=== PATIENT | female | born 1930 | race Caucasian/White ===

== ENCOUNTER 2016-11-03 12:39 | Emergency (ER) | payer OTHER ==
[2016-11-03 13:18] VITALS: TEMP 97.7; O2SAT 97
[2016-11-03] MEDS ORDERED: ONDANSETRON 4 MG/2 ML VIAL IVP ONE (14:29)
--- NOTE | 2016-11-03 14:32 | EDPHY ---
H & P Stated Complaint: LLQ pain since this morning;hx L ing/femoral hernia HPI/ROS: CHIEF COMPLAINT: Left inguinal pain HISTORY OF PRESENT ILLNESS: Patient complains of 1 day history of left inguinal and left lower quadrant abdominal pain. Gradual onset. Constant duration. Rated at a 4/10 to 7/10. Worse with Valsalva, palpation and movement. Her daughter is with her at bedside. She reports a history of inguinal and femoral hernias in the past in this area. She has been admitted in the past for these due to partial small-bowel obstructions. She was deemed to be a nonsurgical candidate and treated conservatively. She did well with these. She has had no constipation or diarrhea. She has had no fever or chills. No vomiting. Some nausea. No trauma or injury. She does take Xarelto. No other associated complaints or modifying factors. She is chronically dependent on oxygen 2-3 L. REVIEW OF SYSTEMS: Ten systems reviewed and are negative unless otherwise noted in the HPI PAST MEDICAL HISTORY: Reviewed as documented SOCIAL HISTORY: Nonsmoker. Lives in assisted living at the [facility] FAMILY HISTORY: Noncontributory EXAMINATION General Appearance: Alert, no distress Head: normocephalic, atraumatic Eyes: Pupils equal and round, no conjunctival pallor or injection ENT, Mouth: Mucous membranes moist. Uvula midline. No erythema. Airway widely patent. Neck: Normal inspection, supple, non-tender Respiratory: Lungs are clear to auscultation. No wheezing, rhonchi or crackles Cardiovascular: Regular rate and rhythm. No murmur. Pulses intact distally. Gastrointestinal: Abdomen is soft. Left inguinal tenderness. No appreciable hernia palpated. No rigidity or distention. Bowel sounds are present in all 4 quadrants but diminished. Neurological: A&O, GCS 15. nonfocal, normal gait Skin: Warm and dry, no rash Extremities: Nontender, no pedal edema Psychiatric: Mood and affect normal DIFFERENTIAL DIAGNOSES: Including but not limited to hernia, incarcerated hernia, strangulated hernia, colitis, diverticulitis, ureteral stone, UTI MDM: 2:29 p.m. Left lower quadrant/inguinal pain in a patient with history of inguinal and femoral hernias. Patient has an IV contrast allergy but I have ordered CT scan without. Pain medication and laboratory studies have been ordered. Her daughter at bedside is a nurse practitioner. She reports that the patient is very tenuous with her fluid status and is requesting that we not provide any IV fluid resuscitation at this time, as she has easily been precipitated into congestive heart failure. 3:15 p.m. Notified by radiologist Dr. Herman. We discussed the patient's case and the CT scan findings as documented. No bowel incarceration or strangulation. 3:37 p.m. I have re-examined the patient. She is feeling minimally better at this time. She still has left inguinal pain but it has improved somewhat. No vomiting. We discussed discharge home versus admission. She and her daughter at bedside are more comfortable with patient being observed. She is not yet able to ambulate given her pain. I will proceed with admission to the hospital. 3:40 p.m. I discussed the case with hospitalist Dr. Isaacs. He will admit the patient to observation status. She is admitted in stable condition. Vital signs are all within normal limits. SUPERVISION: Patient was evaluated in conjunction with the supervising physician. Please see their note for details. Source: Patient, Family Exam Limitations: No limitations - Personal History Current Tetanus Diphtheria and Acellular Pertussis (TDAP): Yes Tetanus Vaccine Date: 12/12/2011 - Medical/Surgical History Hx Asthma: No Hx Chronic Respiratory Disease: Yes Hx Diabetes: Yes Hx Cardiac Disease: Yes Hx Renal Disease: No Hx Cirrhosis: No Hx Alcoholism: No Hx HIV/AIDS: No Hx Splenectomy or Spleen Trauma: No Other PMH: MEDICAL: DIABETES, CHF, ATRIAL FIBRILLATION, ablation, HTN, raynauds , osteoporosis, osteoarthritis, scoliosis. SURGERY: PACER, TIA, bladder repair - Social History Smoking Status: Never smoked Constitutional: Initial Vital Signs Temperature (C) 97.7 F 11/03/16 13:05 Heart Rate 61 11/03/16 13:05 Respiratory Rate 18 11/03/16 13:05 Blood Pressure 170/72 H 11/03/16 13:05 O2 Sat (%) 97 11/03/16 13:05 O2 Delivery Mode Nasal Cannula O2 (L/minute) 3 Allergies/Adverse Reactions: aspirin Allergy (Verified 11/03/16 13:15) Iodinated Contrast Media - Oral and Allergy (Verified 11/03/16 13:15) Home Medications: Medication Instructions Recorded Acetaminophen [Tylenol ES 500 mg 500 mg PO TIDMEAL 04/04/12 (*)] Simvastatin [Zocor 10 mg] 10 mg PO DAILY18 04/04/12 Acetaminophen [Tylenol ES 500 mg 1,000 mg PO HS 09/04/14 (*)] Carboxymethylcellulose 1% [Refresh 1 drop EACHEYE HS 09/04/14 Celluvisc (*)] Carvedilol [Coreg (*)] 6.25 mg PO BIDMEAL 09/04/14 Torsemide 20 mg PO DAILY 11/04/14 Nitroglycerin [Nitrostat 0.4 mg 0.4 mg SL Q5M PRN 01/30/16 (*)] metFORMIN HCL [Metformin HCl ER] 500 mg PO DAILY@18 01/30/16 Rivaroxaban [Xarelto] 20 mg PO DAILY18 01/31/16 Medical Decision Making - Diagnostics Imaging Results: Imaging Impressions Abdomen/Pelvis CT 11/03/16 14:28 Impression: 1. A few mildly dilated and fluid-filled small bowel loops are seen in the pelvis. 2. Pronounced spinal degenerative changes as well as scoliotic curvature. 3. Cardiac enlargement and coronary arterial calcifications. 4. See above report for additional findings. Results called and discussed with Fab Larson on 11/03/2016 at 15:14 - Data Points Laboratory Results: Laboratory Results 11/03/16 14:30 11/03/16 14:30 11/03/16 11/03/16 11/03/16 14:30 14:30 14:30 WBC RBC Hgb Hct MCV MCH MCHC RDW Plt Count MPV Neut % (Auto) Lymph % (Auto) [place] % (Auto) Eos % (Auto) Baso % (Auto) Nucleat RBC Rel Count Absolute Neuts (auto) Absolute Lymphs (auto) Absolute Monos (auto) Absolute Eos (auto) Absolute Basos (auto) Absolute Nucleated RBC Immature Gran % Immature Gran # PT 15.0 SEC SEC (12.0-15.0) INR 1.18 H (0.83-1.16) APTT 34.9 SEC SEC (23.0-38.0) VBG Lactic Acid 1.1 mmol/L mmol/L (0.7-2.1) Sodium 135 mEq/L mEq/L (134-144) Potassium 4.2 mEq/L mEq/L (3.5-5.2) Chloride 93 mEq/L L mEq/L (97-110) Carbon Dioxide 29 mEq/l mEq/l (22-31) Anion Gap 13 mEq/L mEq/L (8-16) BUN 24 mg/dL H mg/dL (7-23) Creatinine 0.7 mg/dL mg/dL (0.6-1.0) Estimated GFR > 60 Glucose 119 mg/dL H mg/dL (70-100) Calcium 10.0 mg/dL mg/dL (8.5-10.4) Total Bilirubin 0.8 mg/dL mg/dL (0.1-1.4) Conjugated Bilirubin 0.3 mg/dL mg/dL (0.0-0.5) Unconjugated Bilirubin 0.5 mg/dL mg/dL (0.0-1.1) AST 32 IU/L IU/L (14-46) ALT 35 IU/L IU/L (9-52) Alkaline Phosphatase 91 IU/L IU/L (38-126) Total Protein 7.8 g/dL g/dL (6.3-8.2) Albumin 4.5 g/dL g/dL (3.5-5.0) Lipase 230.0 IU/L IU/L (23-300) Urine Color Urine Appearance Urine pH Ur Specific [place] Urine Protein Urine Ketones Urine Blood Urine Nitrate Urine Bilirubin Urine Urobilinogen Ur Leukocyte Esterase Urine RBC Urine WBC Ur Epithelial Cells Hyaline Casts Urine Mucus Urine Glucose 11/03/16 11/03/16 14:30 14:15 WBC 6.75 10^3/uL 10^3/uL (3.80-9.50) RBC 3.76 10^6/uL L 10^6/uL (4.18-5.33) Hgb 12.5 g/dL L g/dL (12.6-16.3) Hct 37.9 % L % (38.0-47.0) MCV 100.8 fL H fL (81.5-99.8) MCH 33.2 pg pg (27.9-34.1) MCHC 33.0 g/dL g/dL (32.4-36.7) RDW 11.5 % % (11.5-15.2) Plt Count 172 10^3/uL 10^3/uL (150-400) MPV 9.3 fL fL (8.7-11.7) Neut % (Auto) 62.4 % % (39.3-74.2) Lymph % (Auto) 28.1 % % (15.0-45.0) [place] % (Auto) 6.2 % % (4.5-13.0) Eos % (Auto) 2.1 % % (0.6-7.6) Baso % (Auto) 0.9 % % (0.3-1.7) Nucleat RBC Rel Count 0.0 % % (0.0-0.2) Absolute Neuts (auto) 4.21 10^3/uL 10^3/uL (1.70-6.50) Absolute Lymphs (auto) 1.90 10^3/uL 10^3/uL (1.00-3.00) Absolute Monos (auto) 0.42 10^3/uL 10^3/uL (0.30-0.80) Absolute Eos (auto) 0.14 10^3/uL 10^3/uL (0.03-0.40) Absolute Basos (auto) 0.06 10^3/uL 10^3/uL (0.02-0.10) Absolute Nucleated RBC 0.00 10^3/uL 10^3/uL (0-0.01) Immature Gran % 0.3 % % (0.0-1.1) Immature Gran # 0.02 10^3/uL 10^3/uL (0.00-0.10) PT INR APTT VBG Lactic Acid Sodium Potassium Chloride Carbon Dioxide Anion Gap BUN Creatinine Estimated GFR Glucose Calcium Total Bilirubin Conjugated Bilirubin Unconjugated Bilirubin AST ALT Alkaline Phosphatase Total Protein Albumin Lipase Urine Color PALE YELLOW Urine Appearance CLEAR Urine pH 7.0 (5.0-7.5) Ur Specific [place] 1.011 (1.002-1.030) Urine Protein NEGATIVE (NEGATIVE) Urine Ketones NEGATIVE (NEGATIVE) Urine Blood NEGATIVE (NEGATIVE) Urine Nitrate NEGATIVE (NEGATIVE) Urine Bilirubin NEGATIVE (NEGATIVE) Urine Urobilinogen NEGATIVE EU EU (0.2-1.0) Ur Leukocyte Esterase NEGATIVE (NEGATIVE) Urine RBC 1-3 /hpf /hpf (0-3) Urine WBC NONE SEEN /hpf /hpf (0-3) Ur Epithelial Cells NONE SEEN /lpf /lpf (NONE-1+) Hyaline Casts 1-5 /lpf /lpf (0-1) Urine Mucus TRACE /lpf /lpf (NONE-1+) Urine Glucose NEGATIVE (NEGATIVE) Departure - Departure Disposition: [facility] Inpatient Acute Clinical Impression: Abdominal pain Qualifiers: Abdominal location: left lower quadrant Qualified Code(s): R10.32 - Left lower quadrant pain Inguinal hernia Qualifiers: Obstruction and gangrene presence: without obstruction or gangrene Laterality: bilateral Recurrence: recurrent Qualified Code(s): K40.21 - Bilateral inguinal hernia, without obstruction or gangrene, recurrent Condition: Good Referrals: Lorena Taylor MD [Primary Care Provider] - As per Instructions
[2016-11-03 14:46] LABS: % IMMATURE GRANULYOCYTES 0.3 % (0.0-1.1); ABSOLUTE IMMATURE GRANULOCYTES 0.02 10^3/uL (0.00-0.10); ADD DIFF? NO; ADD MORPH? NO; ADD SCAN? NO; ATYPICAL LYMPHOCYTE FLAG 0 (0-99); FRAGMENT RBC FLAG 0 (0-99); HEMATOCRIT 37.9 % (38.0-47.0); HEMOGLOBIN 12.5 g/dL (12.6-16.3); LEFT SHIFT FLG 10 (0-99); LIPEMIA HEMOLYSIS FLAG 80 (0-99); MEAN CELL HEMOGLOBIN 33.2 pg (27.9-34.1); MEAN CELL VOLUME 100.8 fL (81.5-99.8); MEAN PLATELET VOLUME 9.3 fL (8.7-11.7); PLATELET CLUMPS FLAG 0 (0-99); PLATELET COUNT 172 10^3/uL (150-400); RED BLOOD CELL COUNT 3.76 10^6/uL (4.18-5.33); RED CELL DISTRIBUTION WIDTH 11.5 % (11.5-15.2)
[2016-11-03 14:51] LABS: COLOR PALE YELLOW; LEUKOCYTE ESTERASE,URINE NEGATIVE (NEGATIVE); NITRITE,URINE NEGATIVE (NEGATIVE)
[2016-11-03 14:54] LABS: INR 1.18 (0.83-1.16)
[2016-11-03 14:55] LABS: APTT 34.9 SEC (23.0-38.0)
[2016-11-03 15:01] LABS: ALANINE AMINOTRANSFERASE 35 IU/L (9-52); ALBUMIN 4.5 g/dL (3.5-5.0); ALKALINE PHOSPHATASE 91 IU/L (38-126); ANION GAP 13 mEq/L (8-16); ASPARTATE AMINOTRANSFERASE 32 IU/L (14-46); BILIRUBIN,TOTAL 0.8 mg/dL (0.1-1.4); BILIRUBIN-CONJUGATED 0.3 mg/dL (0.0-0.5); BILIRUBIN-UNCONJUGATED 0.5 mg/dL (0.0-1.1); CARBON DIOXIDE 29 mEq/l (22-31); CHLORIDE 93 mEq/L (97-110); CREATININE 0.7 mg/dL (0.6-1.0); GLOMERULAR FILTRATION RATE > 60; GLUCOSE 119 mg/dL (70-100); POTASSIUM 4.2 mEq/L (3.5-5.2); SODIUM 135 mEq/L (134-144); TOTAL PROTEIN 7.8 g/dL (6.3-8.2)
[2016-11-03 15:01] LABS: MUCUS TRACE /lpf (NONE-1+)
[2016-11-03 15:14] LABS: WBC,URINE NONE SEEN /hpf (0-3)
[2016-11-03] MEDS ORDERED: ACETAMINOPHEN 325 MG TAB PO PRN (16:08)
[2016-11-03] MEDS ORDERED: ONDANSETRON DISINTEGRATING 4 MG TAB PO PRN (16:08)
[2016-11-03] MEDS ORDERED: METOCLOPRAMIDE 10 MG/2 ML VIAL IVP PRN (16:08)
[2016-11-03] MEDS ORDERED: ONDANSETRON 4 MG/2 ML VIAL IVP PRN (16:08)
[2016-11-03] MEDS ORDERED: NS 1,000 ML IV SCH (16:15)
--- NOTE | 2016-11-03 17:06 | PDGENHP ---
History and Physical - Chief Complaint Acute abdominal pain - History of Present Illness PCP: Dr. Taylor Consulting provider: Fab Larson, emergency department provider Reason for consultation: Acute partial small-bowel obstruction HPI: 86-year-old female presenting with acute abdominal pain characterized as 7 /10 sharp pain located in the left inguinal area with onset of symptoms 730 on the morning of presentation and duration persistent thereafter. She reports that the character is very similar to her previous small bowel obstructions. She reports that the pain is exacerbated with Valsalva, palpation, movement. She attempted to alleviated with Gas-X x2, no success. Her last oral intake was breakfast on the morning of presentation before the onset of symptoms, and her only oral intake thereafter has been 2 sips of water. Her last bowel movement was normal on the morning of presentation. Prior to initiation of symptoms, the patient had otherwise been feeling well. She reports that she did attempt to reduce the potential hernia by massaging her abdomen and lying supine, with no effect. History Information - Allergies/Home Medication List Allergies/Adverse Reactions: aspirin Allergy (Verified 11/03/16 13:15) Iodinated Contrast Media - Oral and Allergy (Verified 11/03/16 13:15) Home Medications: Simvastatin [Zocor 10 mg] 10 mg PO DAILY18 04/04/12 [Last Taken 11/02/16] Carvedilol [Coreg (*)] 6.25 mg PO BIDMEAL 09/04/14 [Last Taken 11/03/16] Torsemide 20 mg PO DAILY@11/04/14 [Last Taken 11/03/16] Nitroglycerin [Nitrostat 0.4 mg (*)] 0.4 mg SL AD PRN 01/30/16 [Last Taken Unknown] metFORMIN HCL [Metformin HCl ER] 500 mg PO DAILY@18 01/30/16 [Last Taken ] Rivaroxaban [Xarelto] 20 mg PO DAILY18 01/31/16 [Last Taken 11/02/16] Acetaminophen [Tylenol ES 500 mg (*)] 1,000 mg PO TID@,,11/03/16 [Last Taken 11/03/16 2000mg] Acetaminophen [Tylenol ES 500 mg (*)] 500 mg PO DAILY@18 11/03/16 [Last Taken ] Herbals/Supplements -Info Only 1 ea PO DAILY 11/03/16 [Last Taken Unknown] I have personally reviewed and updated: family history, medical history, social history, surgical history - Past Medical History Additional medical history: partial small bowel obstruction secondary to femoral hernia. Recurrent inguinal and femoral hernias. Chronic hypoxic respiratory failure. Chronic systolic congestive heart failure secondary to takotsubo cardiomyopathy with last known ejection fraction 25%. Atrial fibrillation and sick sinus syndrome. Hypertension. Hyperlipidemia. Diabetes mellitus type 2. Coronary artery disease status post OH in March 2012. Postoperative provoked pulmonary embolism - Surgical History Additional surgical history: permanent pacemaker placement. ORIF femur. Hysterectomy. Cataract surgery. Foot surgery - Family History Additional family history: her parents are , she had no other recent sick family contacts - Social History Smoking Status: Never smoked Alcohol Use: Occasionally Drug Use: None Additional social history: utilizes a walker, lives at [facility] Review of Systems ROS: 10pt was reviewed & negative except for what was stated in HPI & below Gastrointestinal: Reports: abdominal pain, abdominal distention Physical Exam Temp Pulse Resp BP Pulse Ox 36.5 C 61 18 170/72 H 97 11/03/16 13:05 11/03/16 13:05 11/03/16 13:05 11/03/16 13:05 11/03/16 13:05 Constitutional: no apparent distress, appears nourished, not in pain, other ( elderly appearing) Eyes: PERRL, anicteric sclera, EOMI, other ( per surgical cataract pupils) Ears, Nose, Mouth, Throat: moist mucous membranes, hearing normal, ears appear normal, no oral mucosal ulcers Cardiovascular: regular rate and rhythym, no murmur, rub, or gallop, No edema Respiratory: no respiratory distress, no rales or rhonchi, clear to auscultation Gastrointestinal: normoactive bowel sounds, soft, non-tender abdomen, no palpable masses, distension ( mild), other ( no inguinal hernia noted), No guarding Genitourinary: no bladder fullness, no bladder tenderness Skin: warm, normal color, no rashes or abrasions, no fluctuance, no induration, No mottled Neurologic: AAOx3, No facial droop Psychiatric: interacting appropriately, not anxious, not encephalopathic, thought process linear Lab Data & Imaging Review 11/03/16 14:30 11/03/16 14:30 WBC 6.75 10^3/uL (3.80-9.50) 11/03/16 14:30 RBC 3.76 10^6/uL (4.18-5.33) L 11/03/16 14:30 Hgb 12.5 g/dL (12.6-16.3) L 11/03/16 14:30 Hct 37.9 % (38.0-47.0) L 11/03/16 14:30 MCV 100.8 fL (81.5-99.8) H 11/03/16 14:30 MCH 33.2 pg (27.9-34.1) 11/03/16 14:30 MCHC 33.0 g/dL (32.4-36.7) 11/03/16 14:30 RDW 11.5 % (11.5-15.2) 11/03/16 14:30 Plt Count 172 10^3/uL (150-400) 11/03/16 14:30 MPV 9.3 fL (8.7-11.7) 11/03/16 14:30 Neut % (Auto) 62.4 % (39.3-74.2) 11/03/16 14:30 Lymph % (Auto) 28.1 % (15.0-45.0) 11/03/16 14:30 [place] % (Auto) 6.2 % (4.5-13.0) 11/03/16 14:30 Eos % (Auto) 2.1 % (0.6-7.6) 11/03/16 14:30 Baso % (Auto) 0.9 % (0.3-1.7) 11/03/16 14:30 Nucleat RBC Rel Count 0.0 % (0.0-0.2) 11/03/16 14:30 Absolute Neuts (auto) 4.21 10^3/uL (1.70-6.50) 11/03/16 14:30 Absolute Lymphs (auto) 1.90 10^3/uL (1.00-3.00) 11/03/16 14:30 Absolute Monos (auto) 0.42 10^3/uL (0.30-0.80) 11/03/16 14:30 Absolute Eos (auto) 0.14 10^3/uL (0.03-0.40) 11/03/16 14:30 Absolute Basos (auto) 0.06 10^3/uL (0.02-0.10) 11/03/16 14:30 Absolute Nucleated RBC 0.00 10^3/uL (0-0.01) 11/03/16 14:30 Immature Gran % 0.3 % (0.0-1.1) 11/03/16 14:30 Immature Gran # 0.02 10^3/uL (0.00-0.10) 11/03/16 14:30 PT 15.0 SEC (12.0-15.0) 11/03/16 14:30 INR 1.18 (0.83-1.16) H 11/03/16 14:30 APTT 34.9 SEC (23.0-38.0) 11/03/16 14:30 VBG Lactic Acid 1.1 mmol/L (0.7-2.1) 11/03/16 14:30 Sodium 135 mEq/L (134-144) 11/03/16 14:30 Potassium 4.2 mEq/L (3.5-5.2) 11/03/16 14:30 Chloride 93 mEq/L (97-110) L 11/03/16 14:30 Carbon Dioxide 29 mEq/l (22-31) 11/03/16 14:30 Anion Gap 13 mEq/L (8-16) 11/03/16 14:30 BUN 24 mg/dL (7-23) H 11/03/16 14:30 Creatinine 0.7 mg/dL (0.6-1.0) 11/03/16 14:30 Estimated GFR > 60 11/03/16 14:30 Glucose 119 mg/dL (70-100) H 11/03/16 14:30 Calcium 10.0 mg/dL (8.5-10.4) 11/03/16 14:30 Total Bilirubin 0.8 mg/dL (0.1-1.4) 11/03/16 14:30 Conjugated Bilirubin 0.3 mg/dL (0.0-0.5) 11/03/16 14:30 Unconjugated Bilirubin 0.5 mg/dL (0.0-1.1) 11/03/16 14:30 AST 32 IU/L (14-46) 11/03/16 14:30 ALT 35 IU/L (9-52) 11/03/16 14:30 Alkaline Phosphatase 91 IU/L (38-126) 11/03/16 14:30 Total Protein 7.8 g/dL (6.3-8.2) 11/03/16 14:30 Albumin 4.5 g/dL (3.5-5.0) 11/03/16 14:30 Lipase 230.0 IU/L (23-300) 11/03/16 14:30 Urine Color PALE YELLOW 11/03/16 14:15 Urine Appearance CLEAR 11/03/16 14:15 Urine pH 7.0 (5.0-7.5) 11/03/16 14:15 Ur Specific [place] 1.011 (1.002-1.030) 11/03/16 14:15 Urine Protein NEGATIVE (NEGATIVE) 11/03/16 14:15 Urine Ketones NEGATIVE (NEGATIVE) 11/03/16 14:15 Urine Blood NEGATIVE (NEGATIVE) 11/03/16 14:15 Urine Nitrate NEGATIVE (NEGATIVE) 11/03/16 14:15 Urine Bilirubin NEGATIVE (NEGATIVE) 11/03/16 14:15 Urine Urobilinogen NEGATIVE EU (0.2-1.0) 11/03/16 14:15 Ur Leukocyte Esterase NEGATIVE (NEGATIVE) 11/03/16 14:15 Urine RBC 1-3 /hpf (0-3) 11/03/16 14:15 Urine WBC NONE SEEN /hpf (0-3) 11/03/16 14:15 Ur Epithelial Cells NONE SEEN /lpf (NONE-1+) 11/03/16 14:15 Hyaline Casts 1-5 /lpf (0-1) 11/03/16 14:15 Urine Mucus TRACE /lpf (NONE-1+) 11/03/16 14:15 Urine Glucose NEGATIVE (NEGATIVE) 11/03/16 14:15 Visualized and Interpreted imaging results: Yes Interpretation: abdominal CT demonstrating dilated loops of small bowel Assessment & Plan Assessment: 86-year-old female presents with acute partial small-bowel obstruction in the setting of sliding inguinal femoral hernia Plan: 1. Acute partial small-bowel obstruction. Identified by dilated loops of small bowel on CT imaging with area of small inguinal hernia and location and character consistent with previous obstructions from hernia. - reviewed outside records including 02/01/[address] Ellen Seay reporting the patient had a spontaneous reduction of her femoral hernia and improved with conservative management, had surgical consultation by Dr. Shivam Mccoy - it appears the patient has had a similar situation with clinical reduction and potential resolution of the obstruction although her abdomen is mildly distended but nontender at present - I recommended to the patient and her daughter liquid trial with water and ice chips, engage clinical response and watch for return of symptoms - if the symptoms do not return, then conservative management and discharge home would be my recommendation and the patient and her daughter are amenable to following this recommendation - if the patient experiences significant pain or return of symptoms, then we will place her on IV fluids overnight, supportive care as needed, make NPO - if the patient discharged home, recommend that she maintain on water and ice chips this evening, advance to clear liquids tomorrow, advanced to light diet the day after and follow up with primary care provider 2. Chronic hypoxic respiratory failure. Continue supplemental oxygen while in Emergency Department, no acute exacerbation 3. Chronic systolic congestive heart failure. No evidence of acute exacerbation , patient is high risk of volume overload per her daughter who is a nurse practitioner, patient requires IV fluids overnight, will run them at 100 cc/hour 4. Coronary artery disease. Chronic, patient apparently has 50% stenosis in the LAD, left circ, RCA per catheterization in 2011, not currently experiencing any chest pain - continue home medications when tolerating p.o. intake 5. Diabetes mellitus type 2. Instructed patient and daughter to hold metformin until she has resumed regular diabetic diet Discussed patient's situation with Fab Larson, emergency department provider, he will sign out to Dr. Armenta and they will contact me if the patient does require observation in the hospital overnight.
[2016-11-03 18:26] VITALS: BP 159/79; PULSE 73; RESP 16
== END 2016-11-03 18:23 | disposition home or self-care (01) ==
LOC: UNDOADMOB 15:42
DX: R10.32 Left lower quadrant pain (principal); K40.21 Bilateral inguinal hernia, without obstruction or gangrene, recurrent; J96.10 Chronic respiratory failure, unspecified whether with hypoxia or hypercapnia; I11.0 Hypertensive heart disease with heart failure; I50.22 Chronic systolic (congestive) heart failure

== ENCOUNTER → 2017-05-04 | Outpatient (CLI) | payer OTHER ==
[~2017-05-04] MED LIST: IOPAMIDOL (ISOVUE-300) 100 ML BTL ONE
== END ==
LOC: FIMAGING 13:26
PROVIDERS: ATTEND Internal Medicine
DX: R90.82 White matter disease, unspecified (principal); R41.89 Other symptoms and signs involving cognitive functions and awareness; F22 Delusional disorders
CPT/HCPCS: 70470; Q9967

== ENCOUNTER 2017-06-08 15:14 | Inpatient (IN) | payer OTHER ==
--- NOTE | 2017-06-08 15:34 | CPEKG ---
Heart Rate: 61 RR Interval: 984 P-R Interval: 170 QRSD Interval: 132 QT Interval: 472 QTC Interval: 476 P [place]: 0 QRS [place]: -82 T Wave [place]: 101 EKG Severity - ABNORMAL ECG - EKG Impression: VENTRICULAR-PACED RHYTHM Electronically Signed By: Flaco Hardin 08-Jun-2017 16:14:53
[2017-06-08] MEDS ORDERED: NITROGLYCERIN 2% 1 GM PACKET TP ONE (16:08)
--- NOTE | 2017-06-08 16:14 | EDPHY ---
H & P Stated Complaint: P SOB since last night had 4 doses nitro Time Seen by Provider: 06/08/17 15:55 HPI/ROS: CHIEF COMPLAINT: Shortness of breath HISTORY OF PRESENT ILLNESS: The patient is an 86-year-old female with a history of CHF as well as pacemaker and atrial fibrillation after ablation who comes to the emergency department complaining of shortness of breath particularly at night. Family has been giving her nitroglycerin every time she has a "episode "at night. Sometimes she only needs 1 sometimes she needs 3. This has been worsening over the last 3 months. They state that she has also has had some increased edema in her lower extremities. She typically feels better during the day but today does not. She feels fatigued. They thought they had a Cardiology appointment today when they showed up found out that it was next month. Rather than going home they decided to come to the emergency department. She has not had a fever. She has a mild dry cough. She wears 2 L oxygen at baseline. It had not needed to be increased. They did increase her torsemide about 2 weeks ago and put her on isosorbide about 1 week ago. REVIEW OF SYSTEMS: Constitutional: denies: chills, fever, recent illness, recent injury EENTM: denies: blurred vision, double vision, nose congestion Respiratory: See HPI Cardiac: See HPI Gastrointestinal/Abdominal: denies: abdominal pain, diarrhea, nausea, vomiting, blood streaked stools Genitourinary: denies: dysuria, frequency, hematuria, pain Musculoskeletal: denies: joint pain, muscle pain Skin: denies: lesions, rash, jaundice, bruising Neurological: denies: headache, numbness, paresthesia, tingling, dizziness, weakness Hematologic/Lymphatic: denies: blood clots, easy bleeding, easy bruising Immunologic/allergic: denies: HIV/AIDS, transplant EXAM: GENERAL: Well-appearing, well-nourished and in no acute distress. HEAD: Atraumatic, normocephalic. EYES: Pupils equal round and reactive to light, extraocular movements intact, sclera anicteric, conjunctiva are normal. ENT: TMs normal, nares patent, oropharynx clear without exudates. Moist mucous membranes. NECK: Normal range of motion, supple without lymphadenopathy or JVD. LUNGS: Bilateral crackles HEART: Regular rate and rhythm without murmurs, rubs or gallops. ABDOMEN: Soft, nontender, normoactive bowel sounds. No guarding, no rebound. No masses appreciated. BACK: No CVA tenderness, no spinal tenderness, step-offs or deformities EXTREMITIES: 1+ edema lower extremities, wearing Alex hose. NEUROLOGICAL: Cranial nerves II through XII grossly intact. Normal speech, normal gait. 5/5 strength, normal movement in all extremities, normal sensation PSYCH: Normal mood, normal affect. SKIN: Warm, dry, normal turgor, no visible rashes or lesions. Source: Patient Exam Limitations: No limitations - Personal History Tetanus Vaccine Date: 12/12/2011 - Medical/Surgical History Hx Asthma: No Hx Chronic Respiratory Disease: Yes Hx Diabetes: Yes Hx Cardiac Disease: Yes Hx Renal Disease: No Hx Cirrhosis: No Hx Alcoholism: No Hx HIV/AIDS: No Hx Splenectomy or Spleen Trauma: No Other PMH: MEDICAL: DIABETES, CHF, ATRIAL FIBRILLATION, ablation, HTN, raynauds , osteoporosis, osteoarthritis, scoliosis. SURGERY: PACER, TIA, bladder repair - Family History Significant Family History: No pertinent family hx - Social History Smoking Status: Never smoked Alcohol Use: Sober Drug Use: None Constitutional: Initial Vital Signs Heart Rate 61 06/08/17 15:19 Respiratory Rate 20 06/08/17 15:19 O2 Sat (%) 97 06/08/17 15:19 O2 Delivery Mode Nasal Cannula O2 (L/minute) 2 Allergies/Adverse Reactions: hydrocodone Allergy (Severe, Verified 06/08/17 20:38) Itching aspirin Allergy (Verified 11/03/16 13:15) Iodinated Contrast- Oral and IV Dye Allergy (Verified 11/03/16 13:15) NSAIDS (Non-Steroidal Anti-Inflamma Allergy (Verified 06/08/17 20:38) Other-Enter Comments Home Medications: Medication Instructions Recorded Simvastatin [Zocor 10 mg] 10 mg PO DAILY18 04/04/12 Carvedilol [Coreg (*)] 6.25 mg PO BIDMEAL 09/04/14 Torsemide 20 mg PO DAILY@,11/04/14 Nitroglycerin [Nitrostat 0.4 mg 0.4 mg SL AD PRN 01/30/16 (*)] metFORMIN HCL [Metformin HCl ER] 500 mg PO DAILY@18 10/05/16 Rivaroxaban [Xarelto] 20 mg PO DAILY18 01/31/16 Acetaminophen [Tylenol ES 500 mg 1,000 mg PO TID@,,20 11/03/16 (*)] Acetaminophen [Tylenol ES 500 mg 500 mg PO DAILY@18 11/03/16 (*)] Herbals/Supplements -Info Only 1 ea PO DAILY 11/03/16 Medical Decision Making - Diagnostics EKG Interpretation: An EKG obtained and was read and documented in trace view. Please see trace view for full reading and report. Ventricular paced rhythm, unchanged from previous Imaging Results: Imaging Impressions Chest X-Ray 06/08/17 16:09 Impression: Left lower lobe linear parenchymal scarring or atelectasis. No acute focal infiltrate. Cardiomegaly post pacemaker placement. Extensive scoliosis and degenerative changes throughout the thoracic and lumbar spine.. Imaging: Discussed imaging studies w/ call center assistant Radiologist ED Course/Re-evaluation: 6:30 p.m. I discussed the case with Dr. Uribe who will admit. The patient's family feels more comfortable with her staying they are concerned about her fatigue. I will also give her Lasix. I also discussed the case with Dr. Lagos who will consult tomorrow. Differential Diagnosis: Partial list of the Differential diagnosis considered include but were not limited to; CHF exacerbation, pneumonia, acute coronary disease and although unlikely based on the history and physical exam, I also considered electrolyte abnormality, sepsis. - Data Points Laboratory Results: Laboratory Results 06/08/17 15:39 06/08/17 15:39 06/08/17 06/08/17 06/08/17 15:39 15:39 15:39 WBC 5.83 10^3/uL 10^3/uL (3.80-9.50) RBC 3.46 10^6/uL L 10^6/uL (4.18-5.33) Hgb 11.4 g/dL L g/dL (12.6-16.3) Hct 35.2 % L % (38.0-47.0) MCV 101.7 fL H fL (81.5-99.8) MCH 32.9 pg pg (27.9-34.1) MCHC 32.4 g/dL g/dL (32.4-36.7) RDW 12.0 % % (11.5-15.2) Plt Count 160 10^3/uL 10^3/uL (150-400) MPV 9.8 fL fL (8.7-11.7) Neut % (Auto) 61.7 % % (39.3-74.2) Lymph % (Auto) 27.4 % % (15.0-45.0) Erie % (Auto) 7.5 % % (4.5-13.0) Eos % (Auto) 2.6 % % (0.6-7.6) Baso % (Auto) 0.5 % % (0.3-1.7) Nucleat RBC Rel Count 0.0 % % (0.0-0.2) Absolute Neuts (auto) 3.59 10^3/uL 10^3/uL (1.70-6.50) Absolute Lymphs (auto) 1.60 10^3/uL 10^3/uL (1.00-3.00) Absolute Monos (auto) 0.44 10^3/uL 10^3/uL (0.30-0.80) Absolute Eos (auto) 0.15 10^3/uL 10^3/uL (0.03-0.40) Absolute Basos (auto) 0.03 10^3/uL 10^3/uL (0.02-0.10) Absolute Nucleated RBC 0.00 10^3/uL 10^3/uL (0-0.01) Immature Gran % 0.3 % % (0.0-1.1) Immature Gran # 0.02 10^3/uL 10^3/uL (0.00-0.10) PT 16.4 SEC H SEC (12.0-15.0) INR 1.30 H (0.83-1.16) APTT 36.3 SEC SEC (23.0-38.0) Sodium 136 mEq/L mEq/L (135-145) Potassium 4.0 mEq/L mEq/L (3.5-5.2) Chloride 96 mEq/L L mEq/L (97-110) Carbon Dioxide 29 mEq/l mEq/l (22-31) Anion Gap 11 mEq/L mEq/L (8-16) BUN 22 mg/dL mg/dL (7-23) Creatinine 0.6 mg/dL mg/dL (0.6-1.0) Estimated GFR > 60 Glucose 125 mg/dL H mg/dL (70-100) Calcium 9.5 mg/dL mg/dL (8.5-10.4) Troponin I < 0.012 ng/mL ng/mL (0.000-0.034) NT-Pro-B Natriuret Pep 2230 pg/mL H pg/mL (0-450) Medications Given: Discontinued Medications Furosemide (Lasix Injection) 40 mg IVP EDNOW ONE Stop: 06/08/17 18:32 Last Admin: 06/08/17 19:08 Dose: 40 mg Nitroglycerin (Nitro-Bid 2%) 1 inch TP EDNOW ONE Stop: 06/08/17 16:09 Last Admin: 06/08/17 16:18 Dose: 1 inch Departure - Departure Disposition: [facility] Inpatient Acute Clinical Impression: CHF (congestive heart failure) Qualifiers: Heart failure type: unspecified Heart failure chronicity: chronic Qualified Code(s): I50.9 - Heart failure, unspecified Condition: Fair
[2017-06-08 16:15] LABS: PLATELET COUNT 160 10^3/uL (150-400)
[2017-06-08 16:26] LABS: INR 1.3 (0.83-1.16); PROTIME(PATIENT) 16.4 SEC (12.0-15.0)
[2017-06-08] MEDS ORDERED: FUROSEMIDE 40 MG/4 ML VIAL IVP ONE (18:31)
[2017-06-08] MEDS ORDERED: ONDANSETRON DISINTEGRATING 4 MG TAB PO PRN (18:43)
[2017-06-08] MEDS ORDERED: ONDANSETRON 4 MG/2 ML VIAL IVP PRN (18:43)
--- NOTE | 2017-06-08 21:20 | GHP ---
[f rep st] HISTORY AND PHYSICAL DATE OF ADMISSION: 06/08/2017 CHIEF COMPLAINT: Shortness of breath, dyspnea. PRIMARY BOX BRANDER: Dr. Cormier. HISTORY OF PRESENT ILLNESS: An 86-year-old female with history of Takotsubo cardiomyopathy with a pr ior EF of 25%, moderate TR, moderate pulmonary hypertension, diastolic heart failure, who was brought in by her daughters today with increased shortness of breath, chest heaviness, and PND. Symptoms broussard ve progressed over the last 4 weeks, but have really worsened over the last 3 nights. She feels heav iness in her chest that radiates to her neck. Denies associated nausea, vomiting, or numbness in her hands. She has had increased leg swelling, as well as in her abdomen. Reports PND and dyspnea to [facility] where she could not walk today and required a wheelchair. Her daughters are at bedside and provided quite a bit history as well. They have been trying to keep her out of the hospital and medi kristin manage her. She was recently started on isosorbide a few weeks ago. Her torsemide was increas ed from 20 mg to an additional dose of 5 mg during the day. She has had increased of her oxygen from 2 L to 5 L. She denies any dizziness or lightheadedness. Most recent echocardiogram was in 2014, showed an EF of 67%. Left atrium was dilated. Moderate TR. Moderate pulmonary hypertension and diastolic heart failure. No fevers, chills, or sweats. No cough. No dysuria. REVIEW OF SYSTEMS: I completed a 10-point review of systems, negative except as noted in HPI. PAST MEDICAL HISTORY: 1. Partial small bowel obstruction secondary to femoral hernia. 2. Chronic hypoxemic respiratory failure, on 2 L. 3. History of Takotsubo with prior EF of 25%. 4. Atrial fibrillation, on chronic anticoagulation. 5. Sick sinus syndrome, status post pacer. 6. Hypertension. 7. Hyperlipidemia. 8. Diabetes. 9. Coronary artery disease with SC in 2011. No stents. 10. Pulmonary embolism in the setting of surgery. PAST SURGICAL HISTORY: 1. Pacemaker. 2. ORIF of femur. 3. Hysterectomy. 4. Cataract surgery. 5. Foot surgery. 6. AV ablation. SOCIAL HISTORY: Lives at [place]. Uses a walker. No alcohol, tobacco, or illicits. ALLERGIES: Aspirin and iodine contrast. HOME MEDICATIONS: 1. Metformin 500 mg daily. 2. Torsemide 20 mg in the morning, 5 mg in the afternoon. 3. Zocor 10. 4. Xarelto 20. 5. Nitroglycerin as needed. 6. Herbal supplement. 7. Coreg 6.25 mg b.i.d. 8. Tylenol as needed. PHYSICAL EXAMINATION: VITAL SIGNS: Temperature 36.8, blood pressure 155/72, heart rate in the 60s, respirations 22, 98% on room air. GENERAL: Uncomfortable, claudio cheeks. HEENT: PERRLA. EOMI. Or opharynx clear. CV: Regular. No murmurs, gallops, or rubs. +2 pedal edema. LUNGS: Clear. No cr ackles. GI: Soft, nontender, nondistended. Positive bowel sounds. : No Lambert. MUSCULOSKELETAL : 5/5 upper and lower extremity strength. NEURO: 2 through 12 intact. PSYCH: Alert and oriented x3. LABORATORY DATA: WBC is 5.83, hemoglobin is 11, hematocrit 35, platelets 160, INR is 1.3, sodium 136 , potassium 4, chloride 96, carbon dioxide 29, creatinine 0.6, glucose 125, calcium 9.5, troponin les s than 0.012. BNP is 2230, last was 989. Chest x-ray, personally reviewed by me, pacemaker in place. Atelectasis of left lower lobe. No over t infiltrate or edema. Scoliosis. EKG, personally reviewed by me, paced. ASSESSMENT/PLAN: 1. Dyspnea, chest pressure: Consider pulmonary embolism, but suspect this is more cardiac in origin . It does not appear overt overload on exam, but though does have some lower extremity edema. X-ray with not a lot of fluid, but she does have an elevated brain natriuretic peptide. Her troponin is n egative. I will cycle this. We will check echocardiogram in the morning. I spoke extensively with both the patient and her daughters, and she is not wanting invasive procedures such as cardiac cathet erization. The goal is to medically manage. She got a dose of IV Lasix here in the emergency room. We will reassess in the morning. 2. Chronic hypoxemic respiratory failure: She is stable on 2 L here. 3. History of Takotsubo: Her last echocardiogram showed a normal ejection fraction, but did show mo derate tricuspid regurgitation, hypertension, diastolic heart failure. We will repeat this in the mo rning. 4. Atrial fibrillation: Resume Coreg. Continue Xarelto. 5. Sick sinus syndrome: Status post pacemaker. 6. Hypertension: Resume home medications. 7. Hyperlipidemia: Home medications. 8. Diabetes. We will treat with sliding scale. 9. History of coronary artery disease: Troponin, EKG negative here. 10. Goals: I had extensive conversation with daughters and patient the goals and medical management , and no invasive procedures. She is a do not resuscitate. 11. Deep venous thrombosis prophylaxis: She is on Xarelto. 12. Cardiac diet with fluid restriction. DISPOSITION: The patient warrants inpatient admission given concern for acute decompensated heart fa ilure warranting IV diuresis, telemetry, cardiac evaluation. /[id number]/MODL
[2017-06-08] MEDS ORDERED: traMADol 50 MG TAB PO PRN (23:28)
[2017-06-08] MEDS ORDERED: NITROGLYCERIN 0.4 MG BTL SL PRN (23:28)
[2017-06-08] MEDS: QUEtiapine FUMARATE 50 MG TAB PO SCH (23:37)
--- NOTE | 2017-06-09 08:06 | PDMN ---
Medical Necessity Medical necessity: M190 heart failure A-2days: dyspnea, increased O2 req. 2L., consider Pulm. embolism, LE edema, elevated BNP, hx takotsubo, afib, SSS, HTN, Hyperliipidemia, DM, CAD. concern for acute decompensated heart failure req IV diuresis, tele monitoring, further cardiac eval
[2017-06-09] MEDS ORDERED: Herbals/Supplements -Info Only PO SCH (09:00)
[2017-06-09] MEDS: CARVEDILOL 6.25 MG TAB PO SCH ×2 (09:36→17:50)
[2017-06-09] MEDS: ISOSORBIDE MONONITRATE 30 MG TAB.SR PO SCH (09:36)
[2017-06-09] MEDS: PRAVASTATIN SODIUM 20 MG TAB PO SCH (09:36)
--- NOTE | 2017-06-09 12:09 | ECHO ---
[email or web address] [address] [address] Main: [phone] Fax: Transthoracic Echocardiogram Name: HANNAH RODRIGUEZ MR#: [id number] Study Date: 06/09/2017 Study Time: 11:00 AM Date of : 1930 Age: 86 year(s) Height: 170.2 cm (67 in.) Weight: 43.09 kg (95 lb.) BSA: 1.47 m2 Gender: Female Examination: Echo Indication: Shortness of breath, Hx of Takosubo, Pacemaker Image Quality: Contrast: Requested by: Sofia Uribe BP: 154 mmHg/71 mmHg Heart Rate: Rhythm: Indication: Shortness of breath, Hx of Takosubo, Pacemaker Procedure Staff Turn Down Man: Evgeny Aiken RDCS Reading Physician: Hema Martinez Requesting Provider: Conclusions: Normal size left ventricle. No LV hypertrophy. Normal global systolic LV function. EF is 67 %. No regional wall motion abnormality. Diastolic dysfunction is present. . Normal size right ventricle. The left atrium is severely dilated. The right atrium is moderately to severely dilated. Mild mitral valve regurgitation is present. The aortic valve is tri-leaflet. Mild aortic cusp calcification is noted. Mild aortic valve regurgitation is present. Moderate tricuspid regurgitation is present. The pulmonary artery pressure is mildly increased. The pulmonic valve is normal in appearance and function. Mild pulmonic valve regurgitation is noted. The aorta is normal. No pericardial effusion. Measurements: Chambers Valvular Assessment AV/MV Valvular Assessment TV/PV Normal Normal Normal Name Value Range Name Value Range Name Value Range Ao Laure (MM): 3.2 cm (2.2 cm-3.7 AV Vmax: 1.40 m/s (1 m/s-1.7 TR Vmax: 2.88 mm/s ( - ) cm) m/s) TR PGmax: 33 mmHg ( - ) IVSd (2D): 0.9 cm (0.6 cm-1.1 AV maxP mmHg ( - ) syst. PAP: 38 mmHg ( - ) cm) LVOT Vmax: 0.53 m/s (0.7 m/s-1.1 PV Vmax: 0.96 m/s (0.6 m/s-0.9 m/s) m/s) Patient: HANNAH RODRIGUEZ Study Date: 06/09/2017 Page 1 of 2 11:00 AM LVDd (2D): 4.6 cm (3.9 cm-5.3 AR (PHT): 838 ms ( - ) PV PGmax: 4 mmHg ( - ) cm) MV E Vmax: 0.65 m/s ( - ) LVDs (2D): 2.9 cm (2.1 cm-4 MV A Vmax: 0.38 m/s ( - ) cm) MV E/A: 1.71 ( - ) LVPWd (2D): 0.9 cm ( - ) MV meanP mmHg ( - ) LVEF (2D): 67 (>=54 %) Continued Measurements: Chambers Valvular Assessment AV/MV Valvular Assessment TV/PV Name Value Name Value Name Value LADs Lon.5 cm MV E/E' Septal: 11.50 CVP (est.): 5 mmHg LA Area: 27.3 cm2 MV VTI: 21.00 cm LA Volume: 110 ml AR Vmax: 4.13 cm/s LA Volume Index: 74.8 ml/m2 AR VTI: 231.0 cm Findings: Left Ventricle: Normal size left ventricle. No LV hypertrophy. Normal global systolic LV function. EF is 67 %. No regional wall motion abnormality. Diastolic dysfunction is present. . Right Ventricle: Normal size right ventricle. There is a pacemaker lead noted in the right ventricle. Left Atrium: The left atrium is severely dilated. Right Atrium: The right atrium is moderately to severely dilated. Mitral Valve: The mitral valve is normal in appearance. Mild mitral valve regurgitation is present. Aortic Valve: The aortic valve is tri-leaflet. Mild aortic cusp calcification is noted. Mild aortic valve regurgitation is present. Tricuspid Valve: Moderate tricuspid regurgitation is present. The pulmonary artery pressure is mildly increased. Pulmonic Valve: The pulmonic valve is normal in appearance and function. Mild pulmonic valve regurgitation is noted. Aorta: The aorta is normal. Pericardium: No pericardial effusion. (No Signature Object) Patient: HANNAH RODRIGUEZ Study Date: 06/09/2017 Page 2 of 2 11:00 AM [id number]
[2017-06-09] MEDS ORDERED: FUROSEMIDE 40 MG/4 ML VIAL IVP ONE (12:38)
--- NOTE | 2017-06-09 13:34 | ASMTCMCOM ---
CM Note CM Note Notes: 06/09/2017 Case Management Note Consulted with Paul from Palliative Care. Referral made to [facility]. Hospice to consult at 1400 today. Per Paul pt is Hospice eligible. Pt lives at [facility]. Provided info on 24 hour unskilled caregivers to daughters. Case Management d/c poc: Plan to d/c on hospice back to [place]. Case Management to follow. Date Signed: 06/09/2017 01:33 PM Electronically Signed By:Noemi Olson RN
--- NOTE | 2017-06-09 15:09 | PDCARPN ---
Cardiology Progress Note Chief Complaint: Congestive heart failure exacerbation with associated symptoms Assessment/Plan: Assessment: Patient is an 86 y/o female with history of CAD (RI in 2012), HTN, HLP, COPD, history of PE, SBO with partial resection, atrial fibrillation (on Xarelto with [id number] score of 5) with SSS s/p PPM, and congesting heart failure, who presented to [facility] ER with complaints of progressive dyspnea, PND, and chest heaviness. Patient and family very much wanting to stay out of hospital, and manage patient conservatively, but attempts at manipulation of medications ( nitrates, diuretics, and supplemental oxygen) were without success. Progressive shortness of breath had been noted over the past three days. Weight gain of about 5-6 pounds had also been noted. Uptitration of oral diuretics did not alleviate symptoms or weight. It appeared that the patient's edema localized to the abdominal region, not necessarily the lower extremities. On some days, the therapies seemed to work, but on others, and progressively, the therapies were without improvement. IV dose of lasix was given in the ER and the patient noted rather dramatic improvement in her symptoms. Documented weight while in house have not reflected any significant changes, but according to the daughters (two of which were present in the room with the patient), weight loss of >5 pounds has been noted. Today, the patient is feeling much better. She was up in her chair when seen, and communicated very well to all questions posed. Plan: (1) Palliative care request has been voiced (and sounds to be in the process of being set up) (2) Would continue Xarelto for CVA prophylaxis (3) Coreg to continue for HTN as well as some degree of heart rate control given atrial fibrillation (patient with pacer for praful protection) (4) Statins can continue for HLP, and maintain annual assessment of cholesterol and LFTs (5) Would continue oral diuretics as at present, but should weights increase, would revisit use of IV therapy given the response noted in house. Patient and family are very all well spoken and on the same page on care, and the overall desire to remain out of the hospital - if possible. Subjective: No cardiovascular complaints were voiced Reviewed/Discussed With: family, multidisciplinary team Objective: Vital Signs (8 Hrs) Temp Pulse Resp BP Pulse Ox 06/09/17 11:50 37.1 C 62 16 152/74 H 98 06/09/17 07:46 36.6 C 61 16 154/71 H 98 Intake/Output (24 Hrs) 06/08/17 06/09/17 06/10/17 05:59 05:59 05:59 Intake Total 440 430 Output Total 1900 200 Balance -1460 230 Intake: Oral (ml) 400 430 IV Infused (ml) 40 Output: Urine (ml) 1900 200 Bedside Commode 1200 Toilet 200 Other: Weight 43.001 kg Number of Voids Bedside Commode 1 1 Result Diagrams: 06/08/17 15:39 06/09/17 04:24 Cardiac Labs: Cardiac Lab Results (72 Hrs) 06/08/17 21:08 Troponin I < 0.012 Telemetry: ventricular paced rhythm Echocardiogram: Normal LVEF (67%) with diastolic dysfunction. Severe LAE with mod to severe LARA. Mild MR, mild aortic sclerosis, mod TR, and mild PI. - Physical Exam Constitutional: WDWN, healthy appearing, no apparent distress Eyes: PERRL, EOMI Ears, Nose, Mouth, Throat: moist mucous membranes Cardiovascular: regular rate and rhythm, systolic murmur (soft II/ FROYLAN), No jugular vein distention Peripheral Pulses: 2+: dorsalis-pedis (R), dorsalis-pedis (L) Respiratory: clear to auscultate bilat, no crackles, no wheezes Gastrointestinal: normoactive bowel sounds Skin: no rashes, no edema Musculoskeletal: no muscular tenderness Neurologic: AAOx3, CN II-XII grossly intact Psychiatric: cooperative, interactive, following commands ICD10 Worksheet Patient Problems: Problems Problem Status Onset CHF (congestive heart failure) Acute Chronic Disease Mgmt/Transitional Care Acute Small bowel obstruction Acute Urinary retention Acute
--- NOTE | 2017-06-09 17:09 | HOSPPROG ---
Hospitalist Progress Note Assessment/Plan: * Acute on systolic chronic CHF - persistent severe SOB -EF previous 25%, now improved -IV lasix -patient has continued symptoms despite being medically optimized -patient requests hospice and and do not return to hospital * Chest pain -declines ischemic work-up or any invasive procedure including cath -continue Imdur * Afib/PCM -robert, Jessika * Chronic respiratory failure 2L Patient and family are very clear about desire for comfort treatment only. They desire no further blood draw and DO NOT RETURN TO HOSPITAL Hospice consulted - she meets criteria based on unrelenting symptoms despite optimized med tx Transfer back to [place] at [place] with hospice in am Continue current med regimen for now, some meds can be withdrawn by hospice that aren't symptom tx Need to clarify with cardiology management on PCM on hospice. Subjective: Much better after IV lasix last night Objective: Vital Signs Temp Pulse Resp BP Pulse Ox 37.7 C 61 18 135/58 H 99 06/09/17 16:00 06/09/17 16:00 06/09/17 16:00 06/09/17 16:00 06/09/17 16:00 Laboratory Results 06/09/17 04:24 06/08/17 06/09/17 06/10/17 05:59 05:59 05:59 Intake Total 440 430 Output Total 1900 200 Balance -1460 230 PT 16.4 SEC (12.0-15.0) H 06/08/17 15:39 INR 1.30 (0.83-1.16) H 06/08/17 15:39 ECHO - EF improved CXR viewed, my personal interpretation is - minimal CHF - Physical Exam Constitutional: no apparent distress, appears nourished, not in pain Cardiovascular: regular rate and rhythym, no murmur, rub, or gallop Respiratory: no respiratory distress, no rales or rhonchi, clear to auscultation , inspiratory crackles Gastrointestinal: normoactive bowel sounds, soft, non-tender abdomen, no palpable masses Skin: no rashes or abrasions, no fluctuance, no induration Neurologic: AAOx3, sensation intact bilaterally Psychiatric: interacting appropriately, not anxious, not encephalopathic, thought process linear ICD10 Worksheet Patient Problems: Problems Problem Status Onset CHF (congestive heart failure) Acute Chronic Disease Mgmt/Transitional Care Acute Small bowel obstruction Acute Urinary retention Acute
[2017-06-09] MEDS: ACETAMINOPHEN 325 MG TAB PO PRN ×2 (17:50→22:44)
[2017-06-09] MEDS ORDERED: RIVAROXABAN 15 MG TAB PO SCH (18:00)
[2017-06-09] MEDS ORDERED: MIRTAZAPINE 15 MG TAB PO SCH (21:00)
[2017-06-09] MEDS: QUEtiapine FUMARATE 50 MG TAB PO SCH (21:05)
[2017-06-10 07:27] VITALS: BP 157/65; PULSE 67; RESP 15; TEMP 97.7; O2SAT 94
[2017-06-10] MEDS ORDERED: TORSEMIDE 20 MG TAB PO SCH (09:00)
[2017-06-10] MEDS: CARVEDILOL 6.25 MG TAB PO SCH (09:30)
[2017-06-10] MEDS: ISOSORBIDE MONONITRATE 30 MG TAB.SR PO SCH (09:31)
[2017-06-10] MEDS: PRAVASTATIN SODIUM 20 MG TAB PO SCH (09:31)
--- NOTE | 2017-06-10 10:16 | ASMTLACE ---
LACE Length of stay for Answers: 1 day current admission Acuity / Level of Answers: Yes Care: Did the patient have an inpatient admission? Comorbidities - select Answers: Congestive heart failure all that apply Diabetes (uncontrolled or controlled) Previous myocardial infarction # of Emergency department Answers: 0 visits in the last 6 months Score: 8 Date Signed: 06/10/2017 10:15 AM Electronically Signed By:Noemi Olson RN
--- NOTE | 2017-06-10 10:38 | PDCARPN ---
Cardiology Progress Note Chief Complaint: No cardiovascular complaints were voiced today. Assessment/Plan: Assessment: 06-10-17 Patient doing well today. Meeting with Hospice/Palliative Care yesterday, and plans are in place. Family and patient are all on the same page. She is not wanting to come back to the hospital, and is wanting to have medical management at home. I feel this is more than reasonable for the patient. She is exceptionally aware of her situation, and knows exactly what she wants. Furthermore, is is very able to communicate her wishes. There were some questions about the pacer (she is pacer dependant), and my recommendations would be to have the pacer company informed of significant changes to her status and mental status. If the device is simply turned off, she will pass. If her symptoms are managed, and she has a loss of consciousness, communication with the pacer team needs to occur. As far a follow up on the pacer, the battery life, when last assessed was very good, and no issues were detected. Would maintain annual assessment of the pacer functionality. Should there be questions or concerns that could have something to do with function, would have interrogation performed. This was appealing to the patient and family. 06-09-17 Patient is an 86 y/o female with history of CAD (MD in 2011), HTN, HLP, COPD, history of PE, SBO with partial resection, atrial fibrillation (on Xarelto with [id number] score of 5) with SSS s/p PPM, and congesting heart failure, who presented to [facility] ER with complaints of progressive dyspnea, PND, and chest heaviness. Patient and family very much wanting to stay out of hospital, and manage patient conservatively, but attempts at manipulation of medications ( nitrates, diuretics, and supplemental oxygen) were without success. Progressive shortness of breath had been noted over the past three days. Weight gain of about 5-6 pounds had also been noted. Uptitration of oral diuretics did not alleviate symptoms or weight. It appeared that the patient's edema localized to the abdominal region, not necessarily the lower extremities. On some days, the therapies seemed to work, but on others, and progressively, the therapies were without improvement. IV dose of lasix was given in the ER and the patient noted rather dramatic improvement in her symptoms. Documented weight while in house have not reflected any significant changes, but according to the daughters (two of which were present in the room with the patient), weight loss of >5 pounds has been noted. Today, the patient is feeling much better. She was up in her chair when seen, and communicated very well to all questions posed. Plan: (1) Would continue medical therapy as at present - Xarelto for CVA prophylaxis - Coreg for HTN treatment - statins for HLP history (2) Would resume oral diuretics as prior to admission - daily weights to continue (patient has been doing so for long time, so not change to her routine) - if there is a weight gain of 3 pounds, would trial oral therapy uptitration, and if no change in weight/status noted, would consider IV diuresis as dosed in hospital Subjective: No cardiovascular complaints Reviewed/Discussed With: family, hospitalist Objective: Vital Signs (8 Hrs) Temp Pulse Resp BP Pulse Ox 06/10/17 07:23 36.5 C 67 15 157/65 H 94 06/10/17 04:00 36.6 C 61 16 132/52 H 98 Intake/Output (24 Hrs) 06/09/17 06/10/17 06/11/17 05:59 05:59 05:59 Intake Total 440 930 Output Total 1900 1020 Balance -1460 -90 Intake: Oral (ml) 400 930 IV Infused (ml) 40 Output: Urine (ml) 1900 1020 Bedside Commode 1200 320 Toilet 700 Other: Weight 43.001 kg 42.4 kg Number of Voids Bedside Commode 1 1 Toilet 1 Number of Stools Toilet 1 Result Diagrams: 06/08/17 15:39 06/09/17 04:24 Cardiac Labs: Cardiac Lab Results (72 Hrs) 06/08/17 21:08 Troponin I < 0.012 Telemetry: ventricular paced rhythm - Physical Exam Constitutional: WDWN, healthy appearing, no apparent distress Eyes: PERRL, EOMI Ears, Nose, Mouth, Throat: moist mucous membranes Cardiovascular: regular rate and rhythm, systolic murmur, pulses symmetric bilat , No jugular vein distention Peripheral Pulses: 2+: dorsalis-pedis (R), dorsalis-pedis (L) Respiratory: clear to auscultate bilat, no crackles Gastrointestinal: normoactive bowel sounds Skin: no rashes, no edema Musculoskeletal: no muscular tenderness Neurologic: AAOx3, CN II-XII grossly intact Psychiatric: cooperative, interactive, following commands ICD10 Worksheet Patient Problems: Problems Problem Status Onset CHF (congestive heart failure) Acute Chronic Disease Mgmt/Transitional Care Acute Small bowel obstruction Acute Urinary retention Acute
--- NOTE | 2017-06-10 10:43 | ASDISCHSUM ---
Discharge Information Plan Status:Hospice-Home Medically Cleared to Leave:06/09/2017 Discharge Date:06/10/2017 10:14 AM CM D/C Disposition:Hospice Home ADT D/C Disposition:Hospice Home Projected Discharge Date:06/10/2017 11:00 AM Transportation at D/C:Family Discharge Delay Reason: Follow-Up Date:06/10/2017 11:00 AM Discharge Slot: Final Diagnosis: Placement Information Referral Type:*Hospice Referral ID:[id number] Provider Name:[facility] Address 1:[address] Phone Number: Address 2: Fax Number: City:[place] Selection Factors: State:[place] Patient Contact Information Contact Name:JUANCARLOS Relationship:Daughter Address: City:[place] Phone: [facility] Code:[place] Email: Financial Information Financial Class:Medicare Advantage Plans Primary Plan Desc:[facility] [employer] [facility] Primary Plan Number:[id number] Secondary Plan Desc: Secondary Plan Number: Assessment Information LACE LACE Length of stay for Answers: 1 day current admission Acuity / Level of Answers: Yes Care: Did the patient have an inpatient admission? Comorbidities - select Answers: Congestive heart failure all that apply Diabetes (uncontrolled or controlled) Previous myocardial infarction # of Emergency department Answers: 0 visits in the last 6 months Score: 8 Date Signed: 06/10/2017 10:15 AM Electronically Signed By:Noemi Olson RN [facility] Progress Note CM Ana Cristina VASQUEZ Note Notes: 06/09/2017 Case Management Note Consulted with Paul from Palliative Care. Referral made to [facility]. Hospice to consult at 1400 today. Per Paul pt is Hospice eligible. Pt lives at [facility]. Provided info on 24 hour unskilled caregivers to daughters. Case Management d/c poc: Plan to d/c on hospice back to [place]. Case Management to follow. Date Signed: 06/09/2017 01:33 PM Electronically Signed By:Noemi Olson RN Case Management Discharge Plan Note Case Management Discharge Discharge Order Complete? Answers: Yes Patient to Obtain Answers: via Family Medications Transportation Arranged Answers: Family/Friends Faxed Final Orders Answers: Yes Agency/Facility Transfer Answers: Yes Report Printed & Faxed to Receiving Agency Family Notified Answers: Yes Notes: in room Discharge Comments Notes: 06/10/2017 Case Management Note Faxed final orders to [facility]. Called to confirm receipt [phone]. Family to transport pt home. There is a Jonathon RN to meet family at [place] 11:00 am. RN called report. Date Signed: 06/10/2017 10:11 AM Electronically Signed By:Noemi Olson RN Intervention Information Intervention Type:*Incorrect Registration Date of Service:06/09/2017 08:09 AM Patient Type:Inpatient Staff Member:ROBERT Hinds, Katherine Hours: Discipline: Severity: Comment:
--- NOTE | 2017-06-11 03:52 | GDS ---
[f rep st] DISCHARGE SUMMARY DISCHARGE DIAGNOSES: 1. Acute on chronic systolic congestive heart failure. 2. Chest pain. 3. Atrial fibrillation with pacemaker. 4. Chronic respiratory failure, on 2 L. HISTORY: The patient is an 86-year-old female with congestive heart failure, known ejection fraction 25%. She has had a difficult time managing her congestive heart failure as an outpatient, requiring frequent hospitalization, frequent lab draws, and she still has persistent unrelenting shortness of breath and chest pain. She presented to the hospital with extreme shortness of breath that resolved after a dose of IV Lasix. She declined any type of ischemic workup for her chest pain. She declined any further procedures. She requested hospice care. She did not feel her quality of life with her uncontrolled symptoms was adequate, and she preferred a comfort-focused treatment only. Hospice was consulted, and she was accepted based on her unrelenting symptoms despite optimized medical treatment . She transferred back to her assisted living at [place] with hospice. She is quite stable at [facility] and will continue on her current medical regimen for now, but medications can be withdrawn by [employer] as she progresses. Her pacemaker was discussed with Cardiology, and it will be kept on at this time. She does not have a defibrillator. DISCHARGE MEDICATIONS: Please see computerized record for full detailed list. There are no new medi cations given at the time of hospital discharge other than her torsemide was increased to 20 mg p.o. b.i.d. ADDITIONAL DISCHARGE INSTRUCTIONS: 1. Follow up with Dr. Walt Cormier, Cardiology, as needed. 2. Follow up with Dr. Lorena Taylor, Primary Care. Greater than 30 minutes' time was spent arranging this discharge. Patient was seen and examined by noe decker on the day of discharge. /[id number]/MODL
== END 2017-06-10 10:14 | disposition hospice, home (50) | DRG 292 ==
LOC: OBSVTOIN 18:43 → F2W 21:20
PROVIDERS: ADMIT Internal Medicine; ATTEND Internal Medicine
DX: I50.23 Acute on chronic systolic (congestive) heart failure (principal); J96.11 Chronic respiratory failure with hypoxia; J44.9 Chronic obstructive pulmonary disease, unspecified; I27.20 Pulmonary hypertension, unspecified; E11.9 Type 2 diabetes mellitus without complications; E78.5 Hyperlipidemia, unspecified; I25.10 Atherosclerotic heart disease of native coronary artery without angina pectoris; I48.91 Unspecified atrial fibrillation; I73.00 Raynaud's syndrome without gangrene; I25.2 Old myocardial infarction; Z79.01 Long term (current) use of anticoagulants; Z95.0 Presence of cardiac pacemaker; Z86.73 Personal history of transient ischemic attack (TIA), and cerebral infarction without residual deficits; Z99.81 Dependence on supplemental oxygen; Z86.711 Personal history of pulmonary embolism
CPT/HCPCS: 97165-GO; G8987-GO-CJ; G8988-GO-CI; J1940